=== PATIENT | male | born 1970 | race Caucasian/White ===

== ENCOUNTER 2018-01-12 02:45 | Emergency (ER) | payer OTHER ==
[~2018-01-12] VITALS: Ht 188 cm; Wt 129.3 kg
[~2018-01-12 02:45] MED LIST: AMBIEN 10 MG TA10 MG PO; ANALGESIC325 MG PO; DILAUDID2 M1 PO; HYDROCHLOROTHIA25 M1 PO; LISINOPRIL20 MG PO; LORTAB 7.5/5001 TA3 PO; MEDROLDOSEPACK PO; MELATONIN3 MG PO; METOPROLOL TART25 M1 PO; PHENERGAN 25 MG25 M1 PO; VALIUM5 MG PO
[2018-01-12] MEDS ORDERED: LISINOPRIL20 MG (03:00)
[2018-01-12] MEDS ORDERED: HYDROCHLOROTHIA25 M2 (03:00)
[2018-01-12] MEDS ORDERED: ATORVASTATIN CA40 MG (03:01)
[2018-01-12] MEDS ORDERED: LOMAIRA8 MG (03:03)
[2018-01-12] MEDS ORDERED: ROBAXIN500 MG (03:03)
[2018-01-12] MEDS ORDERED: NEURONTIN600 MG (03:04)
[2018-01-12] MEDS ORDERED: METFORMIN HCL500 MG (03:04)
[2018-01-12] MEDS ORDERED: FLOMAX0.4 MG (03:05)
[2018-01-12] MEDS ORDERED: TRAZODONE HCL50 MG (03:05)
[2018-01-12] MEDS ORDERED: CYMBALTA30 MG (03:05)
[2018-01-12] MEDS ORDERED: PROTONIX40 M1 (03:06)
[2018-01-12] MEDS ORDERED: LIDOCAINE PAIN1 EACH (03:07)
[2018-01-12 03:50] VITALS: BP 128/80
== END 2018-01-12 03:51 | disposition home or self-care (01) ==
LOC: M.ERS 02:45
DX: J02.9 Acute pharyngitis, unspecified (principal); K21.9 Gastro-esophageal reflux disease without esophagitis; Z88.1 Allergy status to other antibiotic agents

== ENCOUNTER → 2018-11-06 | Outpatient (CLI) | payer MEDICAID ==
[~2018-11-06] MED LIST changes: +ATORVASTATIN CA40 MG; +CYMBALTA30 MG; +FLOMAX0.4 MG; +HYDROCHLOROTHIA25 M2; +LIDOCAINE PAIN1 EACH; +LISINOPRIL20 MG; +LOMAIRA8 MG; +METFORMIN HCL500 MG; +NEURONTIN600 MG; +PROTONIX40 M1; +ROBAXIN500 MG; +TRAZODONE HCL50 MG
--- NOTE | 2018-11-10 19:26 | SLEEP ---
[address] [address] SLEEP STUDY REPORT Name: TERESA JACOBSEN [id number]: [facility]/18 Attend Phys: Shanel Macias Discharge: Date of : 72 Report #: [id number] THIS REPORT FOR: //name// CC: Shanel Macias FAM physician/PCP This study has been reviewed in its entirety by a board certified sleep specialist DATE OF SERVICE: 11/06/2018 SLEEP STUDY ATTENDING PHYSICIAN: Dr. Shanel Macias The patient is 48 years old, weighs 290 pounds with a BMI of 36.2. The patient underwent a split night study performed at [facility]. During the night study, the patient spent 490 minutes in bed and slept for 350 minutes with a sleep efficiency of 71%. Sleep latency was prolonged at 54 minutes with a REM latency of 117 minutes. Overall, sleep architecture showed normal stage 1 and stage 2 sleep, increased slow wave and normal REM sleep. During the initial diagnostic portion of the study, the patient slept for 203 minutes. During that time, there were 2 obstructive apneas, no mixed apneas and no central apneas and 38 hypopneas. The patient's apnea hypopnea index was 11.8 per hour with a REM index of 45 per hour and a supine index of 75 per hour. EKG monitoring revealed a mean average heart rate of 93 beats per minute with a maximum of 110 beats per minute. No arrhythmias observed. PLMS were seen at an index of 10 per hour and 3 per hour caused EEG arousals. Nocturnal oximetry study revealed an average oxygen saturation of 93% with a lowest of 77%. 9 minutes were spent in oxygen saturation of less than 89%. The patient met the criteria for CPAP initiation. It was started at 5 cm water and titrated up to 12 cm water. At the final pressure, the patient slept for 38.3 minutes. Including 10 minutes of REM sleep. The patient had supine REM sleep. The patient's AHI was reduced to 1.6 per hour and oxygen saturation remained above 90%. IMPRESSION: 1. Mild sleep apnea-hypopnea syndrome with worsening during supine and REM sleep. Total AHI 11.8 per hour with a REM AHI of 45 per hour [place] [address] SLEEP STUDY REPORT Name: TERESA JACOBSEN Room: [facility] Edda#: [id number] Admission: 11/06/18 Attend Phys: Shanel OAKES [facility] Discharge: Date of : 72 Report #: [id number] of 75 per hour. 2. Nocturnal hypoxia secondary to obstructive sleep apnea, but resolved with CPAP. 3. Mild periodic limb movements. RECOMMENDATIONS: 1. CPAP at 12 cm water completely eliminated the patient's sleep apnea and should be used on a nightly basis. 2. Follow up in 4-6 weeks to assess compliance with CPAP and to document clinical improvement. 3. Weight loss is strongly advised. 4. Avoid [employer] depressants. 5. Cautioned regarding driving until symptoms of sleep apnea resolve with the use of CPAP. 6. Avoid supine sleep. <ELECTRONICALLY SIGNED> By: Catalino Bains MD 11/10/18 [id number] Franklin Bains MD /nt
== END ==
LOC: M.SLEEPLAB 19:17
DX: G47.39 Other sleep apnea (principal); G47.33 Obstructive sleep apnea (adult) (pediatric); R09.02 Hypoxemia; E11.22 Type 2 diabetes mellitus with diabetic chronic kidney disease; I12.9 Hypertensive chronic kidney disease with stage 1 through stage 4 chronic kidney disease, or unspecified chronic kidney disease; N18.9 Chronic kidney disease, unspecified; K21.9 Gastro-esophageal reflux disease without esophagitis; E78.5 Hyperlipidemia, unspecified; F32.9 Major depressive disorder, single episode, unspecified; Z79.899 Other long term (current) drug therapy; G89.4 Chronic pain syndrome